=== PATIENT | female | born 2005 | race Caucasian/White ===

== ENCOUNTER 2024-03-23 09:03 | Emergency (ER) | payer MEDICAID, OTHER ==
[2024-03-23] MEDS ORDERED: Naloxone 2 MG/2 ML Syringe IVPUSH PRN (09:27)
[2024-03-23 09:31] LABS: BASOPHILS PERCENT AUTO 0.4 % (0.0-1.0); HEMATOCRIT 34.8 % (37.0-47.0); HEMOGLOBIN 11.3 g/dL (12.0-16.0); LYMPHOCYTES PERCENT AUTO 41.2 % (20.5-50.1); MEAN CORPUSCULAR HEMOGLOBIN 29.8 pg (27.0-34.0); MEAN CORPUSCULAR HGB CONC 32.5 g/dL (33.0-35.0); MEAN CORPUSCULAR VOLUME 91.8 fL (80-100); MONOCYTES PERCENT AUTO 8.2 % (2-8); NEUTROPHILS PERCENT AUTO 49.2 % (42.2-75.2); PLATELET COUNT,PLT 312 10^3/uL (150-450); RED BLOOD CELL COUNT 3.79 10^6/uL (4.2-5.4); WHITE BLOOD CELL COUNT,WBC 8.3 10^3/uL (5.0-10.0)
[2024-03-23] MEDS: fentaNYL 100 MCG/2 ML SDV IVPUSH ONE (09:44)
[2024-03-23 10:06] LABS: PROTHROMBIN TIME 9.9 SEC (9.0-12.0)
[2024-03-23 10:14] LABS: A/G RATIO 1.1; ALANINE AMINOTRANSFERASE,ALT 21 U/L (14-59); ALBUMIN 3.7 g/dL (3.4-5.0); ALKALINE PHOSPHATASE 81 U/L (46-116); ANION GAP 10.5 mEq/L (7-13); ASPARTATE AMNIOTRANSFERASE,AST 14 U/L (15-37); BILIRUBIN TOTAL 0.3 mg/dL (0.2-1.0); BLOOD UREA NITROGEN,BUN 9 mg/dL (7-18); BUN/CREATININE RATIO 9.5 (No establ ref range); CALCIUM 9.6 mg/dL (8.5-10.1); CARBON DIOXIDE,CO2 28 mmol/L (21-32); CHLORIDE,CL 104 mmol/L (98-107); CREATININE 0.95 mg/dL (0.55-1.02); EST CRCL DRUG DOSING (CG) 92.62 mL/min; GLUCOSE RANDOM 92 mg/dL (70-99); POTASSIUM,K 3.5 mmol/L (3.5-5.1); PROTEIN TOTAL,TP 7.2 g/dL (6.4-8.2); SODIUM,NA 139 mmol/L (136-145)
[2024-03-23 10:15] LABS: ESTIMATED GFR 89 mL/min (>=60)
[2024-03-23] MEDS: Ketorolac 30 MG/ML SDV IVPUSH ONE (10:21)
[2024-03-23] MEDS: Sodium Chloride 0.9% 10 ML Syringe FLUSH PRN (10:22)
[2024-03-23 10:34] LABS: CORONAVIRUS COVID-19 NAA NEGATIVE (NEGATIVE); INFLUENZA A NAA NEGATIVE (NEGATIVE); INFLUENZA B NAA NEGATIVE (NEGATIVE)
== END 2024-03-23 10:58 | disposition home or self-care (01) ==
LOC: DL.ED 09:03
DX: M94.0 Chondrocostal junction syndrome [Tietze] (principal)
CPT/HCPCS: 0240U; 36415; 71046; 80053; 84484; 85025; 85379; 85610; 93005; 96374; 96375; 99285; J1885; J3010; 93010; 99284; J3490